=== PATIENT | female | born 1935 | race Caucasian/White ===

== ENCOUNTER 2016-04-22 12:40 | Emergency (ER) | payer MEDICARE ==
[2016-04-22] MEDS ORDERED: predniSONE 20 MG TAB PO ONE (12:47)
--- NOTE | 2016-04-22 13:08 | RAD ---
EXAM DESCRIPTION: Chest,1 View CLINICAL HISTORY: Altered level of consciousness. Emphysema COMPARISON: 10/07/2015 TECHNIQUE: Single view chest FINDINGS: Normal heart size. Atherosclerotic aorta. Hyperinflated lungs consistent with emphysema with stable pleural thickening at the lung apices. No pulmonary edema, alveolar consolidation or pleural effusion Osteopenia without acute bony abnormality. Surgical clips left axilla IMPRESSION: Emphysema, stable No acute cardiopulmonary process Electronically signed by: Narciso Conner MD 04/22/2016 1:07 PM NUTRITION DIRECTOR
[2016-04-22] MEDS ORDERED: PIPERACILLIN/TAZOBACTAM 3.375 GM in SODIUM CHLORIDE 0.9% 100ML 100 ML IVPB ONE (13:12)
[2016-04-22] MEDS ORDERED: SODIUM CHLORIDE 0.9% 100ML 100 ML IVPB ONE (13:28)
[2016-04-22] MEDS ORDERED: PIPERACILLIN/TAZOBACTAM 3.375 GM VIAL IVPB ONE (13:28)
[2016-04-22] MEDS ORDERED: WATER FOR INJ 10 ML VIAL INJ ONE (13:30)
[2016-04-22] MEDS ORDERED: SODIUM CHLORIDE 0.9% 1000ML 1,000 ML IVS ONE (13:53)
--- NOTE | 2016-04-22 15:34 | CT ---
EXAM DESCRIPTION: Abdoment/Pelvis w/o Contrast CLINICAL HISTORY: leukocytosis, increase amylase lipase COMPARISON: None. TECHNIQUE: Noncontrast transaxial CT images of the abdomen and pelvis are obtained in standard imaging protocol. CT scan done according to ALARA (As Low As Reasonably Achievable). FINDINGS: Visualized lung bases show mild increased interstitial thickening. Evaluation is somewhat limited by mild patient motion artifact. Patient also has lack significant intra-abdominal fat limiting tissue plane definition. Given the limitations of a noncontrast exam the liver, spleen, adrenal glands, and gallbladder are unremarkable. There is diffuse decreased attenuation in the region of the head of the pancreas measuring at least 3.5 x 4.3 cm. Loss of normal pancreatic tissue attenuation in this region is seen compared to the body and tail of the pancreas. This has overall decreased attenuation. Moderate vascular calcifications are seen. Kidneys show no significant nephrolithiasis. No ureteral obstruction. Air-fluid filled mildly dilated loops of small bowel throughout the abdomen are seen. There is a moderate amount of formed fecal material in the descending to sigmoid colon. The appendix is not definitely identified. Small amount of fluid is seen in the paracolic gutter region right greater than left. Small amount of simple free fluid in the dependent portion of the pelvis is seen. There is a Mayes catheter in the urinary bladder obscuring visualization. The uterus and ovaries are not identified. Osseous structures are diffusely osteopenic. The hardening artifact from left hip arthroplasty is seen. Levocurvature of the lower lumbar spine is seen. Moderate to severe disc degenerative changes of the lower lumbar spine are noted. IMPRESSION: Enlarged, decreased attenuation in the head of the pancreas raises suspicion for pancreatitis. Consider further evaluation with ultrasound right upper quadrant of the abdomen. Mild fat stranding and fluid in the paracolic gutter to fluid in the pelvis is seen could represent reactive ascites. Moderate constipation or obstipation in the descending to sigmoid colon. Findings suggest mild ileus. Other findings as described in body of report. Electronically signed by: Dami Louis MD 04/22/2016 3:34 PM CREDIT CONTROL CLERK
--- NOTE | 2016-04-22 17:10 | US ---
NAME: ALETHA MERCADO PROCEDURE: US ABDOMEN LIMITED ORDER DATE: 04/22/2016 3:41 PM IMPORT CUSTOMER SERVICE MANAGER ACCESSION NUMBER: [id number] Clinical History: eval gb/pancreas Indication: Complex area seen in the head of the pancreas on the recent CT of the abdomen and pelvis Comparison: CT of the abdomen and pelvis done on the same day . Technique: Ornelas scale evaluation of the right upper quadrant of the abdomen was done ultrasonographically along with limited color Doppler evaluation Findings: The gallbladder wall thickness is normal and measures 2.0 mm. There is no visualization of sludge or gallstones in the gallbladder. There is no pericholecystic fluid. There is no ultrasonographically positive Medrano's sign. The common duct is transverse diameter measures 12 mm and is dilated. There is no intraductal common duct calculus. The liver measures 13.0 centimeters in length. There are no focal liver lesions. There is no intrahepatic biliary dilatation. There is a complex mixed density hypoechoic area seen in the head of the pancreas measuring 5.3 mm and corresponds to the lesion seen on the noncontrast CT of the abdomen and pelvis. This may represent focal acute pancreatitis. However the possibility of focal pancreatic head mass is difficult to exclude and can be further assessed with a contrast-enhanced CT of the pancreas There is small amount of free fluid seen around the liver. There is no documented right-sided pleural effusion. The right kidney on this limited evaluation is unremarkable Impression: There is a complex mixed density hypoechoic area seen in the head of the pancreas measuring 5.3 mm and corresponds to the lesion seen on the noncontrast CT of the abdomen and pelvis. This may represent focal acute pancreatitis. However the possibility of focal pancreatic head mass is difficult to exclude and can be further assessed with a contrast-enhanced CT of the pancreas There is small amount of free fluid seen around the liver. The common duct is dilated measuring 12 mm. However there is no intrahepatic biliary dilatation Location of Interpretation: Teleradiology Electronically signed by: Raphael Brown MD 04/22/2016 5:10 PM IMPORT CUSTOMER SERVICE MANAGER
[2016-04-22] MEDS ORDERED: LACTATED RINGERS 1,000 ML IVS ONE (19:53)
[2016-04-22 20:36] VITALS: TEMP 100.5
[2016-04-22 20:38] VITALS: BP 139/66; O2SAT 92
--- NOTE | 2016-04-22 20:41 | ED.PDOC ---
History of Present Illness - General Chief Complaint: Neuro Symptoms/Deficits Stated Complaint: altered mental status Time Seen by Provider: 04/22/16 12:46 Source: patient, RN notes reviewed, EMS notes reviewed, family Exam Limitations: clinical condition - History of Present Illness Initial Comments: the patient is an 80-year-old female presenting to the emergency room secondary to decreased activity level and interaction level for the last 24 hours. Oral intake has also been decreased. A CBC was checked at the facility and her white blood cell count was markedly elevated so she was sent to the emergency room. The patient does have a history of Parkinson's and has some moderate dementia. She does regular family and some of the nursing staff. The patient is pleasant and cooperative. The patient is initially in no acute distress. She is not throwing up. She is not acting as if she is in pain. She does have some discomfort with palpation of her abdomen. She is alert and cooperative. History from her indicates that she had cervical cancer that was treated many years ago along with breast cancer that was treated approximately 15 years ago with recurrence 2 years ago. She did not completely treatment of the breast cancer 2 years ago. She is currently on medications for chronic thrombocytopenia that appear to be working well. She has had fairly frequent falls along with some recurrent pneumonias. She does have chronic back pain and takes pain medications for it. Timing/Duration: unsure Severity: moderate Improving Factors: nothing Worsening Factors: nothing Associated Symptoms: loss of appetite, malaise, weakness - generalized Allergies/Adverse Reactions: Allergies Azithromycin Allergy (Verified 10/20/15 18:42) Butorphanol [From Stadol] Allergy (Verified 10/20/15 18:42) Erythromycin Allergy (Verified 10/20/15 18:42) Levofloxacin [From Levaquin] Allergy (Verified 10/20/15 18:42) Metoclopramide [From Reglan] Allergy (Verified 10/20/15 18:42) Morphine Allergy (Verified 10/20/15 18:42) Home Medications: Ambulatory Orders Acetaminophen [Tylenol] 500 mg PO PRN PRN 10/20/15 Carbidopa/Levodopa 25/100 [Sinemet 25/100] 1 ea PO DAILY 10/20/15 Eltrombopag Olamine [Promacta] 75 mg PO BEDTIME 10/20/15 Fludrocortisone Acetate 0.2 mg PO DAILY 10/20/15 HYDROcodone 10MG/APAP 325MG [[place] 10/325] 1 tab PO QID PRN 10/20/15 Hydromorphone HCl 4 mg PO TID PRN 10/20/15 Levothyroxine Sodium [Synthroid] 50 mcg PO DAILY 10/20/15 Loratadine 10 mg PO DAILY 10/20/15 Metoprolol Tartrate 25 mg PO BID 10/20/15 Oxybutynin Chloride 5 mg PO BID 10/20/15 Oxycodone HCl 10 mg PO TID PRN 10/20/15 Pantoprazole Sodium [Protonix] 40 mg PO BID 10/20/15 Polyethylene Glycol 3350 [Miralax] 17 gm PO DAILY PRN 10/20/15 Potassium Chloride [K-Tab] 20 meq PO DAILY 10/20/15 Simvastatin [Zocor] 5 mg PO BEDTIME 10/20/15 Review of Systems - Review of Systems Constitutional: States: malaise, weakness - generalized EENTM: States: no symptoms reported Respiratory: States: no symptoms reported Cardiology: States: no symptoms reported Gastrointestinal/Abdominal: States: abdominal pain - ild to moderate, constipation - chronic Genitourinary: States: no symptoms reported Musculoskeletal: States: back pain - chronic Skin: States: no symptoms reported Neurological: States: see HPI Endocrine: States: no symptoms reported All other Systems: No Change from Baseline Past Medical History (General) - Patient Medical History Hx Seizures: No Hx Stroke: No Hx Dementia: No Hx Asthma: No Hx of COPD: No Hx Cardiac Disorders: No Hx Congestive Heart Failure: No Hx Pacemaker: No Hx Hypertension: Yes Hx Thyroid Disease: Yes Hx Diabetes: No Hx Gastroesophageal Reflux: Yes Hx Renal Disease: No Hx Cancer: Yes - breast Hx of HIV: No Hx MRSA: No Surgical History: noncontributory - Vaccination History Hx Tetanus, Diphtheria Vaccination: Yes Hx Influenza Vaccination: Yes Hx Pneumococcal Vaccination: Yes - Social History Hx Tobacco Use: Yes - quit 40 years ago Hx Chewing Tobacco Use: No Hx Alcohol Use: No Hx Substance Use: No Hx Substance Use Treatment: No Hx Depression: No Hx Physical Abuse: No Hx Emotional Abuse: No Hx Suspected Abuse: No - Activities of Daily Living Senior Care/Assisted Living (if applicable):: [place] - Female History Patient : No Family Medical History - Family History Mother Family History: Unknown Living Status: Physical Exam - Physical Exam General Appearance: Alert, No apparent distress Eye Exam: bilateral normal Ears, Nose, Throat: hearing grossly normal, normal ENT inspection, normal pharynx - mucous membranes are mildly dry. Neck: non-tender, full range of motion, supple Respiratory: chest non-tender, lungs clear, normal breath sounds, no respiratory distress, no accessory muscle use Cardiovascular/Chest: normal peripheral pulses, regular rate, rhythm, no edema Peripheral Pulses: radial,right: 2+, radial,left: 2+, dorsalis pedis,right: 2+, dorsalis pedis,left: 2+, posterior tibialis,right: 2+, posterior tibialis,left: 2+ Gastrointestinal/Abdominal: soft, other - the patient does have periumbilical discomfort palpation. She does have some mild guarding in that area. No bruising. No rash. No skin changes. Rectal Exam: deferred Back Exam: normal inspection, no CVA tenderness, no vertebral tenderness Extremity: normal range of motion, non-tender, normal inspection, no pedal edema , slow capillary refill - slightly prolonged Neurologic: access liaison II-XII nml as tested, alert, other - the patient is oriented x2 Skin Exam: pallor Comments: Vital Signs - 24 hr 04/22/16 04/22/16 04/22/16 12:47 14:47 15:00 Temperature 97 F L Pulse Rate [ 81 82 84 Left Brachial] Respiratory 20 20 20 Rate Blood Pressure 120/73 131/61 137/69 [Left Arm] O2 Sat by Pulse 93 L 94 L 94 L Oximetry 04/22/16 04/22/16 04/22/16 16:00 17:00 19:00 Temperature 100.5 F H Pulse Rate [ 83 82 86 Left Brachial] Respiratory 20 20 20 Rate Blood Pressure 124/58 142/65 141/72 [Left Arm] O2 Sat by Pulse 96 92 L 91 L Oximetry 04/22/16 20:36 Temperature 100.5 F H Pulse Rate [ 84 Left Brachial] Respiratory 18 Rate Blood Pressure 139/66 [Left Arm] O2 Sat by Pulse 92 L Oximetry Progress - Progress Progress: 04/22/16 20:52 the patient is an 80-year-old female with acute pancreatitis with associated leukocytosis and moderate acute renal failure. The patient is receiving IV fluids. She has not required much in the way of pain medications. She has not required any antiemetics. The patient did have a blood culture taken. She was started on Zosyn upon her arrival here before diagnosis was made. The patient is being transferred for further evaluation. Family does not want aggressive surgical treatment. They would like evaluation to see if the mass seen is likely due to cancer. If so they would like palliative care back in their hometown. If this is simple pancreatitis then they would like routine care for that understanding that her mortality is still very high for that diagnosis. They do not want surgical debridement. They are okay with small procedures being done to help the patient. Vital signs have been stable. The patient has spiked a small fever this evening. transferring for higher level of care - Results/Orders Results/Orders: Laboratory Tests 04/22/16 04/22/16 04/22/16 12:45 13:20 14:50 WBC 33.6 H* RBC 4.41 Hgb 12.0 Hct 37.4 MCV 84.8 MCH 27.1 MCHC 31.9 L RDW 18.5 H Plt Count 295 MPV 9.0 Absolute Neuts (auto) 30.90 H Absolute Lymphs (auto) 0.70 L Absolute Monos (auto) 1.60 H Absolute Eos (auto) 0.00 Absolute Basos (auto) 0.40 H Neutrophils % 92.1 H Lymphocytes % 2.1 L Monocytes % 4.6 Monocytes % (Manual) Not Reportable Eosinophils % 0.0 L Basophils % 1.2 PT 20.4 H* INR 1.820 PTT (SP) 31.5 Sodium 139 Potassium 4.3 Chloride 99 L Carbon Dioxide 27 Anion Gap 17.3 BUN 48 H Creatinine 1.88 H BUN/Creatinine Ratio 25.5 H Random Glucose 80 Serum Osmolality 289.1 Lactic Acid 2.7 H* Calcium 8.6 Magnesium 2.4 Total Bilirubin < 0.2 L AST 77 H ALT 18 Alkaline Phosphatase 129 H Creatine Kinase 41 CK-MB (CK-2) 1.5 CK-MB (CK-2) % Not Reportable Troponin I < 0.02 B-Natriuretic Peptide 459.0 H* Serum Total Protein 6.7 Albumin 3.5 Globulin 3.2 Albumin/Globulin Ratio 1.1 Amylase 2418 H* Lipase 1122 H TSH 0.78 Urine Color Yellow Urine Appearance Clear Urine pH 5.5 Ur Specific [place] >= 1.030 Urine Protein Negative Urine Glucose (UA) Negative Urine Ketones Negative Urine Blood Negative Urine Nitrite Negative Urine Bilirubin Negative Urine Urobilinogen 0.2 Ur Leukocyte Esterase Negative Urine RBC 0 Urine WBC 0-1 Ur Epithelial Cells 0-1 Urine Bacteria 2+ H Urine Mucus Moderate EKG shows normal sinus rhythm without acute ST segment changes concerning for ischemia. Normal axis. Heart rate is 83. CT of the abdomen shows a 5 cm mass with fluid collections at the head of the pancreas. ultrasound shows a similar finding with a 12 mm common bile duct without obvious obstructing stone. No intrahepatic dilation. Departure - Departure Clinical Impression: Pancreatitis, acute Qualifiers: Pancreatitis type: other Qualifier Code: (K85.8) Other acute pancreatitis Disposition: Transfer to Hospital Referrals: Darshan Mcelroy MD [Primary Care Provider] - 1-2 Weeks Home Medications: Ambulatory Orders Acetaminophen [Tylenol] 500 mg PO PRN PRN 10/20/15 Carbidopa/Levodopa 25/100 [Sinemet 25/100] 1 ea PO DAILY 10/20/15 Eltrombopag Olamine [Promacta] 75 mg PO BEDTIME 10/20/15 Fludrocortisone Acetate 0.2 mg PO DAILY 10/20/15 HYDROcodone 10MG/APAP 325MG [[place] 10/325] 1 tab PO QID PRN 10/20/15 Hydromorphone HCl 4 mg PO TID PRN 10/20/15 Levothyroxine Sodium [Synthroid] 50 mcg PO DAILY 10/20/15 Loratadine 10 mg PO DAILY 10/20/15 Metoprolol Tartrate 25 mg PO BID 10/20/15 Oxybutynin Chloride 5 mg PO BID 10/20/15 Oxycodone HCl 10 mg PO TID PRN 10/20/15 Pantoprazole Sodium [Protonix] 40 mg PO BID 10/20/15 Polyethylene Glycol 3350 [Miralax] 17 gm PO DAILY PRN 10/20/15 Potassium Chloride [K-Tab] 20 meq PO DAILY 10/20/15 Simvastatin [Zocor] 5 mg PO BEDTIME 10/20/15 Transfer to Outside Facility - Transfer Information Accepting Provider:: dr king Accepting Facility: [facility] Reason for Transfer: required specialist not available
[2016-04-22] MEDS ORDERED: ACETAMINOPHEN 325 MG TAB PO ONE (20:49)
== END 2016-04-22 21:24 | disposition short-term general hospital (02) ==
LOC: ER 12:40
DX: K85.90 Acute pancreatitis without necrosis or infection, unspecified (principal); G20 Parkinson's disease; F02.80 Dementia in other diseases classified elsewhere, unspecified severity, without behavioral disturbance, psychotic disturbance, mood disturbance, and anxiety; Z85.41 Personal history of malignant neoplasm of cervix uteri; Z85.3 Personal history of malignant neoplasm of breast; D69.6 Thrombocytopenia, unspecified; G89.29 Other chronic pain; M54.9 Dorsalgia, unspecified; Z88.8 Allergy status to other drugs, medicaments and biological substances; Z88.6 Allergy status to analgesic agent; Z79.899 Other long term (current) drug therapy; I10 Essential (primary) hypertension; K21.9 Gastro-esophageal reflux disease without esophagitis; E07.9 Disorder of thyroid, unspecified; Z87.891 Personal history of nicotine dependence
CPT/HCPCS: 36415; 71010; 74176; 76775; 80053; 81001; 82150; 82550; 82553; 83605; 83690; 83735; 83880; 84443; 84484; 85025; 85610; 85730; 87040; 87502; 93005; A4216; J2543; J7030; J7050; J7120; J7512

== ENCOUNTER → 2016-04-22 | Outpatient (CLI) | payer MEDICARE | LOC: GT 08:00 | PROVIDERS: ATTEND Family Medicine | DX: G20 Parkinson's disease (principal); E63.9 Nutritional deficiency, unspecified; R52 Pain, unspecified ==